=== PATIENT | female | born 1960 | race Caucasian/White ===

== ENCOUNTER 2018-03-17 10:29 | Inpatient (IN) | payer BC ==
[2018-03-12 13:58] VITALS: BMI 28.0
--- NOTE | 2018-03-12 14:31 | PAT Medication Instructions ---
Service Date March 12, 2018. Current Home Medication List Ascorbic Acid (Vitamin C), 250 MG PO QAM Cod Liver Oil (Cod Liver Oil), 1 TAB PO QAM Diclofenac Sodium (Topical) (Voltaren 1% Top Gel), 1 DOSE TOP PRN Lorazepam (Ativan), 0.5 MG PO HS PRN for RN Multivitamin (Multivitamin), 1 TAB PO PRN Nutritional Supplements (Estroven), 1 TAB PO QAM Tramadol (Ultram), 50-100 MG PO Q4H PRN for PRN Medication Instructions For Your Scheduled Surgery - Hold the following medications starting tomorrow: Cod Liver Oil (Cod Liver Oil), 1 TAB PO QAM - Hold the following medications 24 hours prior to surgery: Diclofenac Sodium (Topical) (Voltaren 1% Top Gel), 1 DOSE TOP PRN - Hold the following medications the morning of surgery: Ascorbic Acid (Vitamin C), 250 MG PO QAM Multivitamin (Multivitamin), 1 TAB PO PRN Nutritional Supplements (Estroven), 1 TAB PO QAM - Take the following medications the morning of surgery with a sip of water: Lorazepam (Ativan), 0.5 MG PO HS PRN for RN (if needed) Tramadol (Ultram), 50-100 MG PO Q4H PRN for PRN (if needed, can be taken up to four hours before surgery) - Take the following medications as scheduled the night before surgery: Lorazepam (Ativan), 0.5 MG PO HS PRN for RN (if needed) Tramadol (Ultram), 50-100 MG PO Q4H PRN for PRN (if needed) If you have any questions please call us at [phone] or [phone] or [phone]
--- NOTE | 2018-03-12 15:00 | DIAGNOSTIC IMAGING REPORT ---
CHEST 2 VIEWS ROUTINE CLINICAL HISTORY: PAT preoperative evaluation COMPARISON STUDY: No previous studies for comparison. FINDINGS: The bones soft tissues and hemidiaphragms are normal. The cardiomediastinal silhouette is normal. The lungs are clear. The pulmonary vasculature is normal. IMPRESSION: Negative chest. The above report was generated using voice recognition software. It may contain grammatical, syntax or spelling errors. Electronically signed by: Gerardo Corbett M.D. 03/12/2018 2:58 PM Dictated Date/Time: 03/12/2018 2:58 PM
[2018-03-12 15:35] LABS: BASO % 0.2 %; BASO ABS # 0.01 K/uL (0-0.2); EOS % 2.5 %; EOS ABS # 0.12 K/uL (0-0.5); HEMOGLOBIN 14.6 g/dL (12.0-16.0); IG# 0.01 K/uL (0.00-0.02); LYMPH % 32.8 %; LYMPH ABS # 1.57 K/uL (1.2-3.4); MEAN CELL VOLUME 87.7 fL (80-100); MEAN CORPUSCULAR HGB CONC 36.5 g/dl (32-36); MEAN PLATELET VOLUME 9.2 fL (7.4-10.4); MONO ABS # 0.43 K/uL (0.11-0.59); NEUT % 55.3 %; NEUT ABS # 2.65 K/uL (1.4-6.5); PLATELET COUNT 300 K/uL (130-400); RED CELL DISTRIBUTION WIDTH SD 38.5 fL (36.4-46.3); WHITE BLOOD COUNT 4.79 K/uL (4.8-10.8)
[2018-03-12 15:43] LABS: PTT PATIENT 26.1 SECONDS (21.0-31.0)
[2018-03-12 15:56] LABS: CALCIUM 8.8 mg/dl (8.5-10.1); CREATININE 0.79 mg/dl (0.60-1.20); POTASSIUM 3.2 mmol/L (3.5-5.1)
--- NOTE | 2018-03-13 16:55 | HISTORY & PHYSICAL EXAMINATION ---
DATE OF ADMISSION: 03/17/2018 CHIEF COMPLAINT: Bilateral knee pain, right side greater than left. 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 She has got a 6-month history of markedly increasing bilateral knee pain and discomfort, unresponsive to conservative treatment. She has had baseline pain for quite some time but just gotten more unbearable over the past 6 months. She has tried various medicines but developed GI irritation from NSAIDs and cannot take them anymore. She has been using tramadol which helps at night time. She has had steroid shots and gel shots which have not helped much. She now likes to proceed with knee replacement. She has actually had to use a wheelchair intermittently on a vacation trip to [place]. She has also tried topical Voltaren gel which has provided minimal relief. PAST MEDICAL HISTORY: Significant for: 1. Hypertension. 2. Anxiety/depression. 3. Arthritis. PAST SURGICAL HISTORY: x3. ALLERGIES: PENICILLIN, REACTIONS UNKNOWN. CURRENT MEDICINES: Include: 1. Ativan for anxiety. 2. Tramadol for pain. 3. Topical Voltaren gel. 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 She is . Rare alcohol intake. Does not smoke. FAMILY HISTORY: Noncontributory. REVIEW OF SYSTEMS: Negative for diabetes, neurologic problems, vascular problems, bleeding disorders. Denies any chest pain or shortness of breath. No history of DVT or PE. PHYSICAL EXAMINATION: GENERAL: Reveals a healthy, pleasant middle-aged female. Looks to be in good health. HEENT: Benign. NECK: Supple. No lymphadenopathy. LUNGS: Clear to auscultation. HEART: Has a regular rate and rhythm. ABDOMEN: Soft, nontender, nondistended. EXTREMITIES: Grossly neurovascularly intact except as follows: Examination of the right knee reveals patient walks with varus alignment to her knee. She does limp on the right side. She gets some healed scabs from some insect bites. A small knee effusion. Range of motion 0-120. No instability. Examination of the left knee reveals varus alignment. Range of motion 0-125. Trace knee effusion. No pain with hip motion. X-RAYS: X-rays of both knees reveal advanced bilateral knee DJD. She has got complete loss of medial joint space on both sides. The right side is a bit worse than the left. She has some lateral compartment disease as well. ASSESSMENT: Gynyn-acvjg-gsng-old white female with bilateral knee degenerative joint disease, right side worse than the left, unresponsive to conservative treatment. She would like to have her right knee replaced. PLAN: We will take her to the operating room and proceed with right knee replacement. The risks and benefits of this procedure were explained to the patient including but not limited to DVT, PE, , infection, neurological injury, vascular injury, bleeding problem, pain, limited range of motion, stiffness, failure to relieve symptoms, incomplete relief of symptoms, etc. Patient understands and desires to proceed. Informed consent was obtained. I did make her aware that at her young age, she may need her knees revised at some point in the future. She is aware of this and wants to proceed.
[2018-03-17] VITALS (8 sets, daily range): BP systolic 104–125; BP diastolic 68–79; PULSE 70–87; TEMP 36.5–37.3; O2SAT 92–99; Ht 162.6 cm; Wt 74.1 kg
[~2018-03-17] VITALS: Ht 162.6 cm; Wt 74.1 kg
[~2018-03-17 10:29] MED LIST: ACETAMINOPHEN 500 MG TAB PO SCH; ASCO250T4 PO; BUPIVACAINE LIPOSOME 266 MG, BUPIVACAINE/EPINEPHRINE INJ 50 ML, SODIUM CHLORIDE 0.9% PF... INFIL SCH; CEFAZOLIN 2000MG IV PUSH 15 ML IV SCH; CODCAP4 PO; DICL1GEL12 TOP; FAMOTIDINE 20 MG TAB PO SCH; GABAPENTIN 600 MG PO SCH; LACTATED RINGER'S 1000ML 1,000 ML IV SCH; LACTATED RINGER'S 1000ML IV SCH; LORA-741 PO; METOCLOPRAMIDE HCL 10 MG TAB PO SCH; MULT-506 PO; NUTRTAB40 PO; SCOPOLAMINE 1.5 MG TDSY TD SCH; TRAM-10 PO; TRANEXAMIC ACID INJ 1,000 MG x 1 Bag Intra-Op IV SCH
[2018-03-17] MEDS ORDERED: SODIUM CHLORIDE 0.9% INJ 10 ML VIAL ONE (10:56)
[2018-03-17] MEDS ORDERED: DEXAMETHASONE SOD INJ 4 MG/ML VIAL ONE (10:56)
[2018-03-17] MEDS ORDERED: BUPIVACAINE 0.5 % 5 MG/1 ML PF 10ML VIAL ONE ×2 (10:56→12:33)
[2018-03-17] MEDS ORDERED: EpINEphrine INJ 1MG/ML AMP 1 MG/ML AMP ONE (10:56)
[2018-03-17] MEDS ORDERED: MIDAZOLAM HCL 1 MG/ML 2ML VIAL ONE (11:01)
[2018-03-17] MEDS ORDERED: FENTANYL CITRATE INJ 50 MCG/1 ML 2 ML VIAL ONE (11:01)
--- NOTE | 2018-03-17 12:24 | History & Physical Bridge Note ---
H&P Re-Evaluation Bridge Note: I have examined the patient, reviewed the History & Physical and in the interval since the performance of the History & Physical I have noted the following changes of clinical significance: No changes noted
[2018-03-17] MEDS ORDERED: BUPIVACAINE 0.25% 30 ML VIAL ONE (12:31)
[2018-03-17] MEDS ORDERED: BUPIVACAINE LIPOSOME 1/3% 266 MG/20 ML VIAL ONE (12:31)
[2018-03-17] MEDS ORDERED: BACITRACIN 50000 UNIT VIAL ONE (12:31)
[2018-03-17] MEDS ORDERED: SODIUM CHLORIDE 0.9% PF 50 ML VIAL ONE (12:31)
--- NOTE | 2018-03-17 14:29 | [facility] Post Operative Brief Note ---
Immediate Operative Summary Operative Date March 17, 2018. Pre-Operative Diagnosis Right Knee Degenerative Joint Disease Post-Operative Diagnosis Same as Preop Procedure(s) Performed Right Total Knee Arthroplasty Surgeon Dr. Aiken Claim Examiner Surgeon(s) Mukesh Albert PA-C Estimated Blood Loss 50 ml Findings Consistent with Post-Op Diagnosis Fluids (cc crystalloids) 800 cc Specimens A. Right Knee Bone and Tissue Drains None Anesthesia Type MAC Spinal Regional Complication(s) none Disposition Accompanied Pt To Recover: no
[2018-03-17] MEDS ORDERED: ZOLPIDEM TARTRATE 5 MG TAB PO PRN (14:30)
[2018-03-17] MEDS ORDERED: TRAMADOL HCL 50 MG TAB PO PRN (14:30)
[2018-03-17] MEDS ORDERED: ALUMINUM/MAGNESIUM/SIMETH (MAALOX MAX) 30 ML UDC PO PRN (14:30)
[2018-03-17] MEDS ORDERED: METOCLOPRAMIDE HCL INJ 5 MG/ML 2 ML VIAL IV PRN (14:30)
[2018-03-17] MEDS ORDERED: BISACODYL 10 MG SUPP PR PRN (14:30)
[2018-03-17] MEDS ORDERED: FENTANYL CITRATE INJ 50 MCG/1 ML 2 ML VIAL IV PRN (14:30)
[2018-03-17] MEDS ORDERED: SILVER SULFADIAZINE 1% CR 50 GM JAR EXT PRN (14:30)
[2018-03-17] MEDS ORDERED: MULTIVITAMIN TAB PO SCH (14:30)
[2018-03-17] MEDS ORDERED: MAGNESIUM HYDROXIDE SUSP 30 ML UDC PO PRN (14:30)
[2018-03-17] MEDS ORDERED: ONDANSETRON INJ 2 MG/ML 2 ML VIAL IV PRN (14:30)
[2018-03-17] MEDS ORDERED: EpHEDrine SULFATE INJ 50 MG/ML AMP IV PRN (14:30)
[2018-03-17] MEDS ORDERED: DiphenhydrAMINE HCL 50 MG/ML VIAL IV PRN (14:30)
[2018-03-17] MEDS ORDERED: ATROPINE SULFATE 0.1 MG/ML 5ML SYR IV PRN (14:30)
[2018-03-17] MEDS ORDERED: MoRPHine SULFATE 2 MG/ML CARP IV PRN (14:30)
[2018-03-17] MEDS ORDERED: LORAZEPAM 0.5 MG TAB PO PRN (14:30)
--- NOTE | 2018-03-17 14:56 | DIAGNOSTIC IMAGING REPORT ---
R KNEE 1 OR 2 VIEWS ROUTINE CLINICAL HISTORY: AP/LATERAL IN PACU RIGHT KNEE COMPARISON: None. DISCUSSION: Anatomic alignment posttotal right knee arthroplasty. Good contact between prosthetic and underlying bone. Surgical drains are in position. Expected soft tissue postoperative change. IMPRESSION: Anatomic alignment posttotal right knee arthroplasty. The above report was generated using voice recognition software. It may contain grammatical, syntax or spelling errors. Electronically signed by: Gerardo Corbett M.D. 03/17/2018 2:55 PM Dictated Date/Time: 03/17/2018 2:54 PM
--- NOTE | 2018-03-17 15:09 | Anesthesiology Progress Note ---
Anesthesia Post Op Note Date & Time March 17, 2018 at 15:08 Vital Signs Pain Intensity: 0 Vital Signs Past 12 Hours Date Time Temp Pulse Resp B/P (MAP) Pulse Ox O2 Delivery O2 Flow Rate FiO2 03/17/18 15:00 69 16 122/75 96 Nasal Cannula 2 03/17/18 14:50 69 16 124/76 96 Nasal Cannula 2 03/17/18 14:40 73 14 131/76 96 Nasal Cannula 2 03/17/18 14:32 37.8 75 19 132/82 94 Oxymask 10 03/17/18 10:59 36.9 84 18 117/79 95 Room Air Notes Mental Status: alert / awake / arousable, participated in evaluation Pt Amnestic to Procedure: Yes Nausea / Vomiting: adequately controlled Pain: adequately controlled Airway Patency, RR, SpO2: stable & adequate BP & HR: stable & adequate Hydration State: stable & adequate Neuraxial Anesthesia: was administered, sensory block is resolving Anesthetic Complications: no major complications apparent
[2018-03-17] MEDS: CHECK SCOPOLAMINE PATCH PLACEMENT SCH (16:00)
[2018-03-17] MEDS: D5W AND 1/2NSS + 20MEQ KCL 1,000 ML IV SCH (17:00)
[2018-03-17] MEDS: ACETAMINOPHEN 500 MG TAB PO SCH ×2 (17:04→20:42)
[2018-03-17] MEDS: FERROUS GLUCONATE 324 MG TAB PO SCH (17:58)
[2018-03-17] MEDS: KETOROLAC TROMETHAMINE 30 MG/ML VIAL IV. SCH (17:58)
[2018-03-17] MEDS: CEFAZOLIN IV 1,000 MG in SYRINGE 0 ML IV SCH (20:37)
[2018-03-17] MEDS: DOCUSATE SODIUM 100 MG CAP PO SCH (20:39)
[2018-03-17] MEDS: SENNA 8.6 MG TAB PO SCH (20:40)
[2018-03-17] MEDS: ASCORBIC ACID 500 MG TAB PO SCH (20:40)
[2018-03-17] MEDS: ASPIRIN 81 MG ECTAB PO SCH (20:41)
[2018-03-17] MEDS: TAPENTADOL ER 50 MG TABCR PO SCH (20:44)
[2018-03-18] MEDS: CHECK SCOPOLAMINE PATCH PLACEMENT SCH ×3 (00:24→15:47)
[2018-03-18] MEDS: KETOROLAC TROMETHAMINE 30 MG/ML VIAL IV. SCH ×5 (00:24→23:26)
[2018-03-18] MEDS: ONDANSETRON INJ 2 MG/ML 2 ML VIAL IV PRN ×2 (00:39→13:57)
[2018-03-18] MEDS: D5W AND 1/2NSS + 20MEQ KCL 1,000 ML IV SCH ×2 (02:28→13:00)
[2018-03-18 03:22] VITALS: BP 105/67; PULSE 60; TEMP 36.8; O2SAT 93
[2018-03-18] MEDS: CEFAZOLIN IV 1,000 MG in SYRINGE 0 ML IV SCH (03:37)
[2018-03-18] MEDS: OXYCODONE HCL IR 5 MG TAB (IMMEDIATE RELEASE) PO PRN ×2 (03:42→23:26)
[2018-03-18] MEDS: ACETAMINOPHEN 500 MG TAB PO SCH ×3 (05:54→21:26)
[2018-03-18 07:05] LABS: HEMATOCRIT 38.8 % (37-47); HEMOGLOBIN 13.6 g/dL (12.0-16.0); MEAN CELL VOLUME 86.8 fL (80-100); MEAN CORPUSCULAR HEMOGLOBIN 30.4 pg (25-34); MEAN CORPUSCULAR HGB CONC 35.1 g/dl (32-36); PLATELET COUNT 183 K/uL (130-400); RED CELL DISTRIBUTION WIDTH SD 38.6 fL (36.4-46.3); WHITE BLOOD COUNT 5.86 K/uL (4.8-10.8)
[2018-03-18 07:20] VITALS: BP 105/67; PULSE 64; TEMP 36.6; O2SAT 95
[2018-03-18 07:38] LABS: CALCIUM 8.1 mg/dl (8.5-10.1); CREATININE 0.76 mg/dl (0.60-1.20); POTASSIUM 3.6 mmol/L (3.5-5.1)
--- NOTE | 2018-03-18 07:47 | OPERATIVE REPORT ---
DATE OF OPERATION: 03/17/2018 SURGEON: Saad Aiken MD UNDERCOAT SPRAYER: DAVID Santana PREOPERATIVE DIAGNOSIS: Right knee degenerative joint disease. POSTOPERATIVE DIAGNOSIS: Same. PROCEDURE PERFORMED: Right cemented posterior stabilized total knee arthroplasty. COMPLICATIONS: None. ESTIMATED BLOOD LOSS: 50 mL. FLUID REPLACEMENT: 800 mL crystalloid fluid replacement. TOURNIQUET TIME: 53 minutes. ANESTHESIA: Spinal with adductor canal block. DRAINS: None. SPECIMENS: Right knee sent for pathology. OPERATIVE INDICATIONS: The patient is a 57-year-old female who has had a several-year history of increasing right knee pain, discomfort, unresponsive to conservative treatment. X-rays show advanced medial compartment arthritis. She failed conservative care and elected to proceed with surgical management. OPERATIVE FINDINGS: Operative findings revealed advanced right knee DJD with pretty extensive grade 4 change of the medial femoral condyle and medial tibial plateau with some tibial femoral subluxation. Most of the wear was on the far medial side of the medial femoral condyle. The lateral compartment was well preserved. She had some grade 3 changes of the patellofemoral compartment. She had a large joint effusion. OPERATIVE IMPLANTS: Operative implants consisted of: 1. A Biomet Vanguard size 60 right posterior stabilized femoral component. 2. Biomet size 59 tibial tray. 3. A 10-mm posterior stabilized polyethylene insert. 4. A 28 x 8 all poly patella. OPERATIVE PROCEDURE: Patient taken to the operating room, identified, and placed on the operating table in supine position. All contact areas were appropriately padded. IV antibiotics were provided by anesthesia team. A spinal anesthetic and adductor canal block had been provided in the holding area. Mckeon catheter was placed in sterile fashion. A right thigh tourniquet was then placed and the right lower extremity was then prepped and draped in the usual sterile fashion. The right leg was elevated and exsanguinated with Esmarch and tourniquet was placed at 300 mmHg. An anterior approach to the right knee was then performed through a longitudinal incision centered over the patella. Sharp dissection was carried through subcutaneous tissues down to the level of the extensor mechanism. A medial parapatellar arthrotomy incision was made. Some subperiosteal dissection was carried out medially. The fat pad resected from beneath the patellar tendon. The lateral patellofemoral ligament was released. Patella was everted and knee was flexed. The osteophytes were taken off the distal femur. The ACL and PCL were then released from the distal femur and the tibia subluxated anteriorly. The external tibial alignment jig was then placed in the anterior face of the tibia and adjusted 14 mm medially. Proximal tibial cut was made to remove about 2-3 mm off the medial side as she did not have a lot of bony wear. Tibia was then sized to a size 59. I really wanted to make it a little bit bigger if possible, but it would have resulted in internal rotation of the tibial tray. We elected to use to the 59. Attention was then drawn to the femur. The distal femur was entered with a sharp drill bit. Intramedullary canal was suctioned. A right 5-degree valgus cutting guide was placed. Distal femoral cutting block was pinned in place. Distal femoral cut was made to take an additional 3 mm of bone off the distal femur. The femur was then sized to a size 60. We did downsize this slightly. The AP cutting block was placed parallel to the epicondylar axis, which was 3 degrees of external rotation. The anterior cut, anterior chamfer cut, posterior cut, posterior chamfer cuts were made. The box guide was placed and adjusted slightly lateral and the box cut was made. The remnants of the medial and lateral menisci were excised. The osteophytes were taken off the posterior aspect of the femur. A trial femoral component was placed. Tibial tray was pinned in maximum external rotation and drill and stem punch were used to create a defect in the proximal tibia for the tibial tray. The knee was then trialed and the 10 mm insert fit most appropriately. Attention was drawn to the patella. The patella was cleaned of all soft tissues. Patella thickness measured 19 mm in thickness and was cut down to 12. It was sized to a size 28. Lug holes were drilled for a 28 patella. The lateral osteophyte was removed. The trial button was placed. Knee was taken through range of motion and patella tracked nicely with no thumbs test. Attention was then drawn toward placement of permanent components. All trial components were removed. A bone plug was placed in the distal femur to limit blood loss. A double batch of Palacos G cement was mixed. A right size 60 posterior stabilized femoral component, size 59 tibial tray, 10 mm posterior stabilized polyethylene insert, and a 28 x 8 all poly patella were then cemented in place. Knee was brought out into full extension until the cement hardened. A final cement check was then performed. The pericapsular tissues were injected with a total of 100 mL of a combination of 20 mL of Exparel, 30 mL of normal saline, 50 mL of 0.25% Marcaine with epinephrine. The patient did receive 1 gram of tranexamic acid. The tourniquet was then let down for a final tourniquet time of 53 minutes. Hemostasis was assured with use of electrocautery. The wound was once again irrigated. The extensor mechanism was then closed with a combination of #1 PDS suture and #1 Vicryl suture in a [id number] fashion. The extensor mechanism was checked and found to be intact. The subcutaneous tissue then closed with #2 Dexon suture in a buried interrupted fashion. Skin was closed skin sherri. Leg was then cleaned and dried and a sterile dressing with Xeroform, 4 x 4, sterile cast padding and Woody bandage were applied. The patient was then transferred to the recovery room in stable condition. The patient tolerated the procedure with no complications. All needle and sponge counts were correct at the end of the operation. I attest to the content of the Intraoperative Record and any orders documented therein. Any exceptions are noted below. CEDRICK
[2018-03-18] MEDS: PANTOprazole SOD 40 MG TAB PO SCH (08:16)
[2018-03-18] MEDS: DOCUSATE SODIUM 100 MG CAP PO SCH ×2 (08:16→20:43)
[2018-03-18] MEDS: FERROUS GLUCONATE 324 MG TAB PO SCH ×3 (08:16→17:45)
[2018-03-18] MEDS: MULTIVITAMIN TAB PO SCH (08:17)
[2018-03-18] MEDS: ASPIRIN 81 MG ECTAB PO SCH ×2 (08:17→20:44)
[2018-03-18] MEDS: ASCORBIC ACID 500 MG TAB PO SCH ×2 (08:17→21:31)
[2018-03-18] MEDS: TAPENTADOL ER 50 MG TABCR PO SCH ×2 (08:21→20:47)
[2018-03-18] MEDS ORDERED: NUTRITIONAL SUPPLEMENTS PO SCH (09:00)
[2018-03-18] MEDS ORDERED: RXC5 PO (09:42)
[2018-03-18] MEDS ORDERED: ASPI-320 PO (09:42)
[2018-03-18] MEDS ORDERED: ACET-24 PO (09:42)
--- NOTE | 2018-03-18 10:11 | PROGRESS NOTE ---
DATE: 03/18/2018 SUBJECTIVE: This is a 57-year-old white female, postop day 1 from a right knee replacement. She is doing pretty well. Pain is controlled. Just feels tired. No chest pain or shortness of breath. Not feeling dizzy or lightheaded. OBJECTIVE: VITAL SIGNS: Temperature 36.6. Vital signs stable. PHYSICAL EXAMINATION: GENERAL: Physical examination shows a pleasant, middle-aged female. I had to wake her this morning as was pretty tired. EXTREMITIES: Examination of the right leg reveals the leg to be well-aligned. She can dorsiflex and plantarflex her foot appropriately. She is neurologically intact. LABORATORIES: Hemoglobin 13.6. Hematocrit 38.8. Electrolytes are stable. ASSESSMENT: This is a 57-year-old white female, postop day 1 from a right knee replacement, doing quite well. Pain is reasonably well-controlled. She is neurologically intact. PLAN: 1. DVT prophylaxis including thigh-high TEDs, SCDs, and aspirin twice a day. 2. PT/OT. Weightbear as tolerated. Right total knee protocol. 3. Pain control, doing well with current pain regimen. 4. Disposition: She is planning to be discharged to home with some home health once adequately recovered.
[2018-03-18 15:30] VITALS: O2SAT 95
[2018-03-18 15:36] VITALS: BP 122/76; PULSE 60; TEMP 37; O2SAT 97
[2018-03-18] MEDS: SENNA 8.6 MG TAB PO SCH (20:47)
--- NOTE | 2018-03-18 21:29 | Discharge Instructions ---
Discharge Instructions Date of Service March 18, 2018. Admission Reason for Admission: Right Knee Degenerative Joint Disease Discharge Discharge Diagnosis / Problem: Right Knee Replacement Discharge Goals Goal(s): Decrease discomfort, Improve function, Increase independence, Improve disease control, Therapeutic intervention Activity Recommendations Activity Limitations: per Instructions/Follow-up section Weightbearing Status: Right weightbearing . Instructions / Follow-Up Instructions / Follow-Up ACTIVITY RECOMMENDATIONS: Physical Therapy: * You will go to physical therapy three times each week for four to six weeks after your surgery in order to regain your knee range of motion and to retrain your knee to work properly. * It is just as important to make sure you are getting your knee perfectly straight as it is to regain your knee bend. * Taking a pain pill an hour before therapy can help you have a more productive and comfortable therapy session. Home Exercise: * You were shown a series of exercises (heel props, heel slides, etc.) in the hospital. Do these exercises three to four times each day including the exercises you were shown in physical therapy. Walking: * Get up and walk several times each day. For the first four weeks, try not to stand or walk for more than one hour at a time. If you do stand or walk for more than one hour, you will not hurt anything, but your knee and leg will likely swell. * As you feel comfortable, you may change from the walker or crutches to a cane and then to independent walking. MEDICATIONS: New Medicine: * You will likely be taking one or more of these medications: 1. Oxycodone - A quick and shorter-acting pain medication. Take one to two tablets every four to six hours to lessen your pain. 2. Aspirin - Thins your blood to lessen the chance of forming a blood clot. * The most common side effects of pain medicine and iron are nausea and constipation. If nausea or constipation is too much of a problem or if you have any questions about your new medicines or doses, call [facility] at . We will try to help you manage these issues. VERY IMPORTANT TO READ AND REVIEW" Pain: * The immediate post-operative period after knee replacement surgery is often quite painful. * You are given a prescription for pain medicine. You should take it, as directed, when you need it, especially before physical therapy and before going to bed. Pain that interferes with sleep is very common and can last several months. * You will likely need pain medicine for the first four to six weeks. It will not stop all of the pain. The pain will lessen and as you feel better, you may change to milder pain medicine such as Tylenol. * The most common side effects of pain medicine are nausea and constipation, so don't take more than you need. SPECIAL CARE INSTRUCTIONS: TEDs/Elastic Stockings: * The white elastic stockings help limit swelling and prevent blood clots from forming in your legs. The more you wear them, the more they work. * Wear them for six weeks after knee replacement surgery and four weeks after partial knee replacement. Prevention of Infection: * Take antibiotics one hour before any dental cleaning, dental work, urological procedure, gastrointestinal procedure or any invasive surgery in order to prevent your new joint from getting infected. * You may get the antibiotics from the doctor performing the procedure or you may call our office at before and we will call in a prescription to the pharmacy of your choice. Things to Watch For: * Drainage from the incision site that occurs more than one week after your surgery. * Severely increased knee/leg pain or swelling. * Increased redness at the incision site. * Fever above 102 degrees Fahrenheit. * Unusual chest pain or shortness of breath. * Unusual pain or burning with urination. Call [facility] at with any of the above problems or if you have any questions about your medicines or recovery. FOLLOW UP VISIT: Make an appointment to see your doctor for approximately two weeks after surgery for a progress check and staple removal by calling the office at . Current Hospital Diet Patient's current hospital diet: Regular Diet Discharge Diet Recommended Diet: Regular Diet Procedures Procedures Performed: Right Total Knee Arthroplasty Pending Studies Studies pending at discharge: no Medical Emergencies . Who to Call and When: Medical Emergencies: If at any time you feel your situation is an emergency, please call [phone] immediately. . Non-Emergent Contact Non-Emergency issues call your: Surgeon . "Provider Documentation" section prepared by Saad Aiken. .
[2018-03-18 23:04] VITALS: BP 134/91; PULSE 69; TEMP 36.8; O2SAT 95
[2018-03-19] MEDS: CHECK SCOPOLAMINE PATCH PLACEMENT SCH ×2 (00:15→07:41)
[2018-03-19] MEDS: KETOROLAC TROMETHAMINE 30 MG/ML VIAL IV. SCH (05:22)
[2018-03-19] MEDS: ACETAMINOPHEN 500 MG TAB PO SCH (05:22)
[2018-03-19] MEDS: OXYCODONE HCL IR 5 MG TAB (IMMEDIATE RELEASE) PO PRN (07:45)
--- NOTE | 2018-03-19 08:02 | PROGRESS NOTE ---
DATE: 03/19/2018 SUBJECTIVE: A 57-year-old female postop day 2 from right knee replacement. She is doing pretty well. Pretty painful after therapy yesterday. No new complaints otherwise. No chest pain or shortness of breath. Not feeling dizzy or lightheaded. OBJECTIVE: VITAL SIGNS: Temperature 36.8. Vital signs stable. PHYSICAL EXAMINATION: GENERAL: Reveals a pleasant, middle-aged female. She is lying in bed, looks pretty comfortable. EXTREMITIES: Examination of the right leg reveals the dressing to be clean, dry and intact. Leg is well aligned. She can dorsiflex and plantarflex her foot appropriately. She is neurologically intact. ASSESSMENT: A 57-year-old white female postop day 2 from right knee replacement, doing reasonably well. Pain is reasonably well controlled. PLAN: 1. DVT prophylaxis including thigh-high TEDs, SCDs, and aspirin twice a day. 2. PT/OT. Weight bear as tolerated. Right total knee protocol. 3. Pain control, doing pretty well with current pain regimen. 4. Disposition: Plan to discharge to home later today after therapy.
[2018-03-19 08:10] VITALS: BP 109/73; PULSE 62; TEMP 36.5; O2SAT 94
[2018-03-19] MEDS: FERROUS GLUCONATE 324 MG TAB PO SCH (08:30)
[2018-03-19] MEDS: PANTOprazole SOD 40 MG TAB PO SCH (08:32)
[2018-03-19] MEDS: MULTIVITAMIN TAB PO SCH (08:32)
[2018-03-19] MEDS: ASCORBIC ACID 500 MG TAB PO SCH (08:32)
[2018-03-19] MEDS: TAPENTADOL ER 50 MG TABCR PO SCH (08:36)
[2018-03-19 10:00] VITALS: BP 91/53; PULSE 63
[2018-03-19] MEDS: DOCUSATE SODIUM 100 MG CAP PO SCH (11:16)
[2018-03-19] MEDS: ASPIRIN 81 MG ECTAB PO SCH (11:16)
== END 2018-03-19 13:26 | disposition home or self-care (01) | DRG 470 ==
LOC: C.ACU 10:29 → C.3E 11:30 → ENRESERV 15:42 → C.3E 03-18 11:26
PROVIDERS: ADMIT Orthopaedic Surgery Sports Medicine; ATTEND Orthopaedic Surgery Sports Medicine
PROC: 0SRC0J9 Replacement of Right Knee Joint with Synthetic Substitute, Cemented, Open Approach (ICD-10-PCS; principal; 2018-03-17 13:00)
DX: M17.0 Bilateral primary osteoarthritis of knee (principal); I10 Essential (primary) hypertension; F41.9 Anxiety disorder, unspecified; Z79.899 Other long term (current) drug therapy; Z79.891 Long term (current) use of opiate analgesic

== ENCOUNTER 2024-04-21 09:53 | Observation (INO) ==
--- NOTE | 2024-03-25 10:37 | PAT Medication Instructions ---
Medication Instructions Date of Service March 25, 2024 Home Medications diltiazem HCl 180 mg tablet,extended release 24 hr 180 mg PO QPM losartan 100 mg tablet 100 mg PO QPM Women's One Daily 1 tab PO QAM DO NOT take the morning of surgery Women's One Daily 1 tab PO QAM Take evening before surgery diltiazem HCl 180 mg tablet,extended release 24 hr 180 mg PO QPM losartan 100 mg tablet 100 mg PO QPM Other Notes NOTHING TO EAT OR DRINK AFTER MIDNIGHT If you have any questions please call us at [phone] or [phone] or [phone] or [phone]
--- NOTE | 2024-04-02 11:34 | Anesthesiology Consultation ---
Date of Service April 02, 2024 Assessment & Plan (1) Encounter for pre-operative examination: - spinal block more 35 years ago: significant headache after spinal block for c- section per patient. - awareness during right knee replacement. - surgeon's office made aware of upcoming ophthalmic procedure 04/09/24. - Outpatient joint assessment: Patient is currently scheduled for inpatient pathway. If re-evaluated and patient/surgeon requests outpatient pathway, patient is acceptable candidate for outpatient joint program from anesthesia standpoint pending surgeon's office assessment of pt motivation/support/completion of same day joint program preop requirements. Chart Review Chart Review: Acceptable Risk for Surgery and Patient seen in Pre Admission Testing Teaching & Discussion Pre-Anesthesia Teaching/Discussion Notes: Instructed NPO after midnight before surgery, except medications with 15 cc of water. Medication instructions provided according to the PAT guidelines. History Surgery Operation Date: 04/13/24 12:30 Proposed Procedures p Left Total Knee Arthroplasty - Saad Aiken MD Height/Weight Height: 5 ft 4 in Weight: 77.7 kg Allergies Allergy/AdvReac Type Severity Reaction Status Date / Time cat dander Allergy Unknown ITCHY Verified 03/23/24 07:35 EYES, STUFFY ,CONGESTION Penicillins Allergy Unknown UNKNOWN Verified 03/23/24 07:35 A CHILD Medications Home Medications Medication Instructions Recorded Confirmed Last Taken diltiazem HCl 180 mg 180 mg PO QPM 03/23/24 03/23/24 Unknown tablet,extended release 24 hr losartan 100 mg tablet 100 mg PO QPM 03/23/24 03/23/24 Unknown multivit-iron 18 mg-folic acid 400 1 tab PO QAM 03/23/24 03/23/24 Unknown mcg-calcium 500 mg-minerals tablet (Women's One Daily) 3-in-1 Commode #1 ea 04/02/24 04/02/24 Unknown Past Medical History Medical History Cervical spondylosis History of anesthesia reaction (2017) reports waking up during right knee replacement surgery History of COVID-19 (2019) not hospitalized, mild Hx of colonic polyp Hypertension controlled, stable per pt Inflammation of eye, left (03/2024) having lens cleaned up in concession cashier office on 04/09/24 with laser- no anesthesia Left knee DJD Patient denies h/o stroke, seizures, heart attack, heart failure, DM, blood clots/DVTs or blood transfusions. Exercise / Class Metabolic Activity II 4-5 Yardwork/Stairs/Walk up hill (denies chest discomfort or shortness of breath with one flight of stairs) Past Surgical History Surgical History History of carpal tunnel surgery of right wrist (2017) History of right knee joint replacement (2017) Hx laparoscopic cholecystectomy (2014) Hx of bilateral cataract extraction (2022) Hx of section x3 Hx of colonoscopy with polypectomy (02/2024) Hx of hysterectomy (2003) Hx of wisdom tooth extraction (1982) Past Anesthesia History No Family Hx of Anesthesia Complications and Other (see above.) History of PONV No Hx of PONV and No Hx of Motion Sickness Social History Smoking Status: Never smoker Do You Dip or Chew Tobacco: No Hx Alcohol Use: Yes Alcohol type: wine alcohol intake frequency: holidays/special occasions only Hx Substance Use: No substance use type: does not use Review of Systems Patient denies chest pain, shortness of breath, dyspnea on exertion, snoring, witnessed apneas, reflux, fever, chills, cough, wheezing, or palpitations. Physical Exam Vital Signs Vitals BP 146/93 P 67 TEMP 97.8 SP02 96% on RA RESP 17 Physical Patient resting comfortably in chair in no acute distress, alert and oriented, responding appropriately throughout visit Full cervical extension range of motion without pain TMD 3.5 finger breadths Mallampati Score 2 Dentition: intact, denies chipped or loose teeth, caps/crowns, implants or bridges Lungs: normal respiratory effort. Good air movement, clear throughout to auscultation, no adventitious breath sounds Cardiac: regular rate and rhythm, no murmurs noted Carotid arteries: negative bruit bilat Lab Results Anesthesia Preop Results Results Anesthesia Widget: WBC 6.23 K/ul (4.8-10.8) 04/02/24 Hgb 14.5 g/dl (12.0-16.0) 04/02/24 Hct 41.3 % (37.0-47.0) 04/02/24 Plt 290 K/uL (130-400) 04/02/24 Na 141 mmol/L (136-145) 04/02/24 K 3.9 mmol/L (3.5-5.1) 04/02/24 Cl 105 mmol/L (98-107) 04/02/24 CO2 29 mmol/L (21-32) 04/02/24 BUN 13 mg/dl (6-23) 04/02/24 Creat 0.65 mg/dl (0.6-1.2) 04/02/24 Glucose Level 90 mg/dl (70-99(Fasting)) 04/02/24 PT 11.7 Seconds (9.0-12.0) 04/02/24 PTT 27 Seconds (21-31) 04/02/24 INR 1.1 (0.9-1.1) 04/02/24 Blood Type A Positive 04/02/24 Antibody Screen NEGATIVE 04/02/24 Testing Electrocardiogram Date: 04/02/24 NSR, rate [address] abnormality Chest X-Ray Date: 04/02/24 No active disease in the chest.
[~2024-04-21 09:53] MED LIST changes: -ACETAMINOPHEN 500 MG TAB PO SCH; -ASCO250T4 PO; -BUPIVACAINE LIPOSOME 266 MG, BUPIVACAINE/EPINEPHRINE INJ 50 ML, SODIUM CHLORIDE 0.9% PF... INFIL SCH; -CEFAZOLIN 2000MG IV PUSH 15 ML IV SCH; -CODCAP4 PO; -DICL1GEL12 TOP; -FAMOTIDINE 20 MG TAB PO SCH; -GABAPENTIN 600 MG PO SCH; -LACTATED RINGER'S 1000ML 1,000 ML IV SCH; -LACTATED RINGER'S 1000ML IV SCH; -LORA-741 PO; -METOCLOPRAMIDE HCL 10 MG TAB PO SCH; -MULT-506 PO; -NUTRTAB40 PO; +ROPIVACAINE 0.5% 5 MG/ML 30 ML VIAL ONE; -SCOPOLAMINE 1.5 MG TDSY TD SCH; -TRAM-10 PO; -TRANEXAMIC ACID INJ 1,000 MG x 1 Bag Intra-Op IV SCH; +ceFAZolin 2000MG 2,000 MG/15 ML SYR IV SCH
--- NOTE | 2024-04-21 10:36 | History & Physical Bridge Note ---
Date of Service April 21, 2024 History & Physical Bridge Note I have examined the patient, reviewed the History & Physical and in the interval since the performance of the History & Physical I have noted the following changes of clinical significance: no changes noted
[2024-04-21] MEDS: Scopolamine 1 MG TDSY TD SCH (11:09)
[2024-04-21] MEDS: METOCLOPRAMIDE HCL 10 MG TABLET PO SCH (11:10)
[2024-04-21] MEDS: CeleBREX 200 MG CAP PO SCH (11:10)
[2024-04-21] MEDS: ACETAMINOPHEN 500 MG TAB PO SCH ×2 (11:10→21:23)
[2024-04-21] MEDS: LR 500ML BOLUS, THEN 15ML/HR IV SCH (11:11)
[2024-04-21] MEDS: dexAMETHasone**PF** 10 MG/ML VIAL IV SCH (11:11)
[2024-04-21] MEDS: FAMOTIDINE 20 MG TAB PO SCH (11:11)
[2024-04-21] MEDS: LR 60ML/HR IV SCH (11:12)
[2024-04-21] MEDS ORDERED: CONTINUE MEDICATION SCH (11:15)
[2024-04-21] MEDS ORDERED: fentaNYL citrate PF 100 MCG/2 ML VIAL IV PRN (11:26)
[2024-04-21] MEDS ORDERED: ATROPINE SULFATE 0.1 MG/ML 10ML SYR IV PRN (11:26)
[2024-04-21] MEDS ORDERED: ePHEDrine sulfate 50 MG/ML AMP IV PRN (11:26)
[2024-04-21] MEDS ORDERED: ONDANSETRON INJ 2 MG/ML 2 ML VIAL IV PRN ×2 (11:26→15:55)
[2024-04-21] MEDS ORDERED: KETOROLAC 30 MG/ML VIAL IV PRN (11:26)
[2024-04-21] MEDS ORDERED: MIDAZOLAM HCL 1 MG/ML 2ML VIAL ONE (12:00)
[2024-04-21] MEDS: ceFAZolin 2000MG 2,000 MG/15 ML SYR IV SCH (12:28)
[2024-04-21] MEDS ORDERED: LIDOCAINE 2% 2 ML VIAL/AMP(20MG/ML) INFIL ONE (12:44)
[2024-04-21] MEDS ORDERED: PROPOFOL IV EMULSION 10 MG/ML 20 ML VIAL IV ONE (13:04)
[2024-04-21] MEDS: ceFAZolin 2,000 MG/15 ML IV PUSH IV ONE (13:18)
[2024-04-21] MEDS: ROPIV 0.5% 246mg, Ketorolac 30mg, EPINEPHrine 0.5mg in NSS INFIL SCH (13:19)
[2024-04-21] MEDS: ORTHO JOINT ANESTHETIC ONE (13:19)
[2024-04-21] MEDS ORDERED: ONDANSETRON INJ 2 MG/ML 2 ML VIAL ONE (13:21)
[2024-04-21] MEDS: TRANEXAMIC ACID 1,000 MG **IV Intra-op IV SCH (13:25)
[2024-04-21] MEDS: VANCOMYCIN HCL 1000MG/20ML VIAL ONE (13:39)
--- NOTE | 2024-04-21 14:15 | Operative Report ---
PG Post Operative Report Pre & Post Diagnosis Operation Date: 04/21/24 12:00 Pre-Op Diagnosis: Degenerative Joint Disease Left Knee Post-Op Diagnosis: Degenerative Joint Disease Left Knee I identified the patient and participated in the time-out.: Yes Procedure Operation Date: 04/21/24 12:00 Actual Procedures p Left Total Knee Arthroplasty(Left) - Saad Aiken MD Surgeon Saad Aiken MD Unit Aide Mukesh Albert PA-C Estimated Blood Loss 50 Findings Consistent with Post-Op Diagnosis Operative findings were advanced left knee DJD. She had extensive grade 4 [id number] disease of the anteromedial compartment. She had some spotty grade 4 changes the patellofemoral joint and less severe disease laterally. Moderate- sized joint effusion. Specimens Left knee sent for pathology. Anesthesia Type Spinal MAC Complications none Disposition Accompanied Patient To Recovery: No Indications Patient is 63-year-old female is had a long history of knee problems over the years. She been through extensive conservative treatments became less successful over time. She did have her right knee placed about 6 years ago and is done well with this. She continues to be limited by left knee pain discomfort and progressive arthritis. She elected to proceed with surgical treatment. Description of Procedure Operative implants consist of: 1 Biomet Vanguard size 60 left posterior stabilized femoral component. 2. Biomet size 63 tibial tray. 3. 12 mm posterior stabilized polyethylene insert. 4. 28 x 8 all poly patella. The patient was taken the op room, identified, placed on the operating table in the supine position. All contact areas were appropriately padded. A spinal anesthetic and adductor canal block had been provided in the holding area. Fole y catheter was placed in sterile fashion. Left thigh turn was then placed in the left lower extremities then prepped and draped in usual sterile fashion. The left leg was elevated exsanguinated with use of an Esmarch and a turn was placed at 3 mmHg. An anterior approach the left knee was then performed to longitudinal incision centered over the patella. Sharp dissection carried through subcutaneous tissue down the extensor mechanism. A medial parapatellar arthrotomy incision was made. Some subperiosteal dissection was carried out medially. The fat pad was resected from Neath patella tendon. The lateral patellofemoral ligament was released. Patella subluxated laterally and the knee was flexed. The osteophytes taken off distal femur. The ACL PCL were then released from distal femur and the tibia subluxated anteriorly. The external tibial alignment jig was then placed on the anterior face of the tibia and adjusted 14 mm medially. Proximal tibial cut was made remove about 1 to 2 mm of bone from the medial side. The tibia was sized to a size 63. Attention drawn the femur. The distal femur Zaro the sharp drop with intramedullary canal was suction. A left 5 degree valgus cutting guide was placed. The distal femoral cutting block was pinned in place. Distal femoral cut was made take an additional 3 mm of bone off distal femur. The femur was then sized to a size 60. The AP cutting block was pinned parallel to the epicondylar axis which was 5 degrees of external rotation. The anterior cut, anterior chamfer, posterior cut, posterior chamfer cuts were made. The box cutting guide was placed in the just slight lateral box cut was made. The knee was flexed. The remnants of the medial and lateral menisci were excised. The osteophyte taken off the posterior aspect the femur. A trial femoral component was placed. The tibial tray was pinned Inez external rotation and the drill and stem punch were used to create defect in proximal tibia for the tibial tray. Knee was then trialed and the 12 mm insert fit most appropriately. Attention drawn the patella. The patella was cleaned of all soft tissue. Patella thickness measured about 18 mm in thickness was cut down to 13. Was sized to a size 28 patella. The lug holes were drilled for the 28 patella. The lateral osteophytes removed. Patella button was placed. Knee was taken through range of motion and the patella tracked nicely with no thumbs test. Attention drawn to place the permanent components. All trial components were removed. Bone plug was placed into the distal femur limit blood loss. A double batch Palacos G cement was mixed. Biomet Vanguard size 60 left posterior stabilized femoral component, size 63 tibial tray, a 12 mm post stabilized polyethylene insert, and 28 x 8 all poly patella then cemented in place. Knee was brought out into full extension till cement hardened. Final cement check was then performed. The pericapsular tissues were injected with total of 100 cc of Ortho joint mix. The patient did receive 1 g tranexamic acid. The tourniquet was then let down for final tourniquet time of 49 minutes. Hemostasis assured use electrocautery. Extensor Meclomen closed with combination 1 PDS suture #1 Vicryl suture in a [id number] fashion. Extensor Meclomen checked found to be intact and subcutaneous tissue was then closed with 2 Dexon suture in a buried interrupted fashion skin was closed skin sherri. Leg was then cleaned and dried and a sterile dressing with Xeroform, 4 fours, sterile cast padding, Woody bandage were applied. Patient then transferred to the recovery room in stable condition. Patient tolerated the procedure well and there were no complications. Mukesh Albert, my physician speech correction assistant, was present for the entire procedure. His assistance was essential and required for appropriate patient positioning, prepping and draping, surgical exposure, performing the technical details of the operation, placement the implants, closure of the wound, and placement of the sterile bandage. I attest to the content of the Intraoperative Record and any orders documented therein. Any exceptions are noted below.
--- NOTE | 2024-04-21 14:44 | Anesthesiology Progress Note ---
Date of Service April 21, 2024 Anesthesia Post Procedure Vital Signs Vital Signs: Temp Pulse Pulse Pulse Resp BP BP 04/21/24 14:40 36.4 C L 63 16 141/69 H 04/21/24 14:30 62 18 118/85 04/21/24 14:20 64 16 120/65 04/21/24 14:13 36.3 C L 76 13 117/65 04/21/24 12:23 64 16 142/82 H 04/21/24 10:32 37 C 66 18 BP Pulse Ox O2 Del Method O2 Flow Rate 04/21/24 14:40 95 Room Air 04/21/24 14:30 99 Oxymask 4 04/21/24 14:20 98 Oxymask 6 04/21/24 14:13 97 Oxymask 6 04/21/24 12:23 100 Oxymask 6 04/21/24 10:32 169/87 H 97 Room Air Pain Intensity Left Knee: Pain Intensity: 2 Transfer of Care Handoff Completed per policy Notes Mental Status: alert / awake / arousable Patient Amnestic to Procedure: Yes Nausea / Vomiting: adequately controlled Pain: adequately controlled Airway Patency, RR, SpO2: stable & adequate BP & HR: stable & adequate Hydration State: stable & adequate Anesthetic Complications: no major complications apparent
--- NOTE | 2024-04-21 15:13 | XRay Report ---
XR knee LT 1 or 2V routine CLINICAL HISTORY: Surgical Post Op TECHNIQUE: 2 views of the left knee were obtained. Comparison: Comparison is made to knee radiograph 12/25/2017 FINDINGS: Patient is status post total knee arthroplasty with expected postsurgical changes including soft tiss ue swelling and subcutaneous emphysema. No periarticular lucency or hardware fracture is seen. IMPRESSION: Expected postoperative appearance status post placement of total knee arthroplasty. ACT 112: Negative or not required by law. Electronically signed by: Bismark Taylor M.D. 04/21/2024 3:12 PM
[2024-04-21] MEDS: ALLERGY Noted to ORDERED Medication SCH (15:40)
[2024-04-21] MEDS ORDERED: oxyCODONE HCL IR 5 MG TAB (IMMEDIATE RELEASE) PO PRN (15:55)
[2024-04-21] MEDS ORDERED: MAGNESIUM HYDROXIDE SUSP 30 ML UDC PO PRN (15:55)
[2024-04-21] MEDS ORDERED: diphenhydrAMINE Capsule 25 MG CAP PO PRN (15:55)
[2024-04-21] MEDS ORDERED: HYDROmorphone INJ 0.5 MG/0.5 ML SYR IV PRN (15:55)
[2024-04-21] MEDS ORDERED: ALUMINUM/MAGNESIUM SUSP 30 ML UDC PO PRN (15:55)
[2024-04-21] MEDS ORDERED: METOCLOPRAMIDE HCL INJ 5 MG/ML 2 ML VIAL IV PRN (15:55)
[2024-04-21] MEDS ORDERED: NALOXONE HCL 0.4 MG/1 ML VIAL/CARP IV PRN (15:55)
[2024-04-21] MEDS ORDERED: bisacodyL 10 MG SUPP PR PRN (15:55)
[2024-04-21] MEDS: SODIUM CHLORIDE 0.9% 1,000 ML IV SCH (16:00)
[2024-04-21] MEDS: Scopolamine CHECK PATCH PLACEMENT SCH (16:43)
[2024-04-21] MEDS: ASCORBIC ACID 500 MG TAB PO SCH (16:47)
[2024-04-21] MEDS: KETOROLAC 30 MG/ML VIAL IV SCH (16:47)
[2024-04-21] MEDS: ceFAZolin 1000MG 1,000 MG/7.5 ML SYR IV SCH (21:21)
[2024-04-21] MEDS: TRANEXAMIC ACID / 0.7% NACL 1,000 MG/100 ML BAG IV SCH (21:21)
[2024-04-21] MEDS: SENNA 8.6 MG TAB PO SCH ×2 (21:21→21:24)
[2024-04-21] MEDS: ASPIRIN 81 MG ECTAB PO SCH (21:22)
[2024-04-21] MEDS: LOSARTAN POTASSIUM 50 MG TAB PO SCH (21:22)
[2024-04-21] MEDS: dilTIAZem HCL 180 MG CAPCR PO SCH (21:22)
[2024-04-21] MEDS: DOCUSATE SODIUM 100 MG CAP PO SCH (21:23)
[2024-04-22 06:34] LABS: Hemoglobin 12.7 g/dl (12.0-16.0); Mean Corpuscular Hemoglobin 31.2 pg (25.0-34.0); Mean Corpuscular Hgb Conc 35.3 g/dL (32.0-36.0); Mean Corpuscular Volume 88.5 fL (80.0-100.0); Mean Platelet Volume 9.1 fL (9.4-12.4); Platelet Count 278 K/uL (130-400); RDW Coefficient of Variation 11.9 % (11.5-14.5); RDW Standard Deviation 38.7 fL (36.4-46.3); Red Blood Count 4.07 M/uL (4.20-5.40); White Blood Count 16.64 K/ul (4.8-10.8)
[2024-04-22 06:48] LABS: BUN Creatinine Ratio 19.4 (10-20); Calcium 8.9 mg/dl (8.6-10.3); Creatinine Clr Calc Pharmacy 93.3 ml/min; Est GFR (African American) 111.2 ml/min; Potassium 3.5 mmol/L (3.5-5.1)
--- NOTE | 2024-04-22 07:14 | Surgery Progress Note ---
Date of Service April 22, 2024 Assessment & Plan (1) Status post left knee replacement: Plan: 63-year-old female postop day 1 from left knee replacement. She is doing pretty well. Pains controlled. She is neurologically intact. Plan: 1. PT/OT. Weight-bear as tolerated left total knee protocol. 2. DVT prophylaxis including thigh-high teds, SCDs, aspirin twice daily. 3. Pain control done okay with current pain regimen. 4. Disposition plan is to discharge to home. She is going to outpatient therapy. Admission and Anticipated Discharge Date Admission Date: April 21, 2024 Subjective 63-year-old female postop day 1 from a left knee replacement. She is doing pretty well this morning. Pains controlled. Had a reasonable night. No chest pain or shortness of breath. Not feeling dizzy or lightheaded. Physical Exam Physical Exam: Physical examination was a pleasant middle-age female. She is lying in bed looks pretty comfortable this morning. Examination left leg reveals the dressing be clean dry and intact. There is no drainage. She can dorsiflex and plantarflex her foot appropriately. She is neurologically intact. Respiratory: normal respiratory effort, lungs clear to auscultation Cardiovascular: RRR, no murmur, no edema Gastrointestinal (Abdomen): normal bowel sounds, soft, nontender, no hepatosplenomegaly Results & Data Vital Signs (Past 12 Hours) Vital Signs Temp Pulse Resp BP Pulse Ox O2 Del Method 04/22/24 03:35 36.5 C 63 16 134/71 96 Room Air 04/21/24 23:38 36.6 C 71 16 126/71 95 Room Air 04/21/24 22:00 Room Air 04/21/24 19:25 36.6 C 84 18 173/83 H 95 Room Air Laboratory Results Hemoglobin is 12.7. Hematocrit 36.0. Electrolytes are stable. PG Care Time/CCT Total # of Minutes Spent Total Time Spent with Patient: Total time spent is greater than 50% in coordination of care (as documented) at patient's floor/unit and/or counseling patient: Coding Level of Care Code 20508 Post Operative Follow-Up Diagnoses Status post left knee replacement Z96.652
[2024-04-22] MEDS: MULTIVITAMIN TAB PO SCH (08:49)
[2024-04-22] MEDS ORDERED: NON-FORMULARY MEDICATION (Multivit-Iron-Fa-Calcium-Mins [Women's One Daily] 18 mg iron-400 PO SCH (09:00)
--- NOTE | 2024-04-22 09:12 | Discharge Summary ---
Date of Service April 22, 2024 Admission HPI Per Admitting Provider CC: 1. Persistent left knee pain and discomfort. 2. Followup of right knee replacement, now 6 years out. The patient is [id number] female who returns for followup of her knees. She continues to be bothered by left knee pain and discomfort. She had her right knee replacement 6 years ago and done well from this. She was pretty painful initially, but very happy with it now. She continues to be limited by left knee pain, discomfort, and stiffness. She has become less active due to the pain in her knee. It is a global pain, but a little bit more medial. It feels stiff all the time. She is ready to have this fixed. A/P: A 63-year-old female, 6 years out from right knee replacement with advanced left knee DJD. She is ready to have her knee fixed. She was pretty painful for the first couple of weeks after the right knee. She is also scheduled for some type of laser cataract surgery about a week after her knee surgery. We will proceed with total knee replacement. The risks and benefits of this procedure were explained and she understands. As far as the laser surgery on her eye, I am fine with her doing that a week afterwards. She can check with the eye doctors to see whether they are willing to do that. She will stay in the hospital overnight. She struggled with pain last time and we will do the best we can to manage this. Not a good candidate for same day discharge. I will see her back 2 weeks postop. Admission Exam Per Admitting Provider Gen: Examination shows a pleasant, healthy, middle-aged female. She looks to be in good health. HEENT: Benign. Neck: Supple. No lymphadenopathy. Lungs: Clear to auscultation. Heart: Regular rate and rhythm. Abdomen: Soft, nontender, and nondistended. Extremities: Grossly neurovascularly intact except as follows. Examination of both knees reveals the patient ambulates independently. She does limp and walks with a little bit of a stiffed knee gait on the left side. Examination of the left knee reveals varus alignment to her knee. She has about a 5-10 degree flexion contracture and bends to about 120. No particular pain with hip motion. Examination of the right knee reveals a well-healed incision. She has got anatomic alignment to the knee. No swelling. Range of motion is 0 to 125. Good straight leg raise. X-rays, 4 views of the left knee from today were reviewed. These show advanced left knee DJD. She has got complete loss of the medial joint space. She has a little bit of tibiofemoral subluxation. Osteophytes primarily medially. She does have some osteophytes laterally. Her right knee looks well-aligned without problems. Principal Diagnosis Same as "Discharge Diagnosis" noted below under Discharge Instructions. Discharge Exam Physical examination was a pleasant middle-age female. She is lying in bed looks pretty comfortable this morning. Examination left leg reveals the dressing be clean dry and intact. There is no drainage. She can dorsiflex and plantarflex her foot appropriately. She is neurologically intact. GENERAL: AA&Ox3, NAD. Pleasant, affect is calm. Sitting in bed and appears comfortable. RESPIRATORY: Normal respiratory effort with no signs of distress. CHEST/AXILLA: Chest movement symmetrical. No deformities noted. CARDIOVASCULAR: No edema noted. SKIN: [place], warm and dry. MS/EXTREMITY: Knee dressing & KIMANI wrap c/d/i. BREA hose donned to contralateral LE. + ankle dorsi/plantarflexion. NVI distally. Calf soft/NT. PT/DP intact. +SLR. Discharge Data Allergies Allergy/AdvReac Type Severity Reaction Status Date / Time cat dander Allergy Unknown ITCHY Verified 04/21/24 10:23 EYES, STUFFY ,CONGESTION Penicillins Allergy Unknown UNKNOWN Verified 04/21/24 10:23 A CHILD Procedures Performed Operation Date: 04/21/24 12:00 Actual Procedures p Left Total Knee Arthroplasty(Left) - Saad Aiken MD Ordered Studies 04/21/24 05:00 US - OR guided needle placemen Routine Knee X-Ray 04/21/24 14:08 XR knee LT 1 or 2V routine CLINICAL HISTORY: Surgical Post Op TECHNIQUE: 2 views of the left knee were obtained. Comparison: Comparison is made to knee radiograph 12/25/2017 FINDINGS: Patient is status post total knee arthroplasty with expected postsurgical changes including soft tissue swelling and subcutaneous emphysema. No periarticular lucency or hardware fracture is seen. IMPRESSION: Expected postoperative appearance status post placement of total knee arthroplasty. ACT 112: Negative or not required by law. Electronically signed by: Bismark Taylor M.D. 04/21/2024 3:12 PM Hospital Course (1) Status post left knee replacement: On April 21, 2024 Racquel arrived at [facility] operating room and underwent a left total knee replacement without complications. Patient had an adductor canal block and spinal anesthetic for the procedure. Postoperatively, patient was transferred to the general orthopedic floor in stable condition and eventually started onto aspirin 81 mg twice daily for DVT prophylaxis as appropriate. Postoperative x-rays were taken, which were well- appearing with no periprosthetic lucency. Patient's hospital course was uneventful. On postoperative day #1, patient's vital signs were stable and pain was well-controlled. Patient was able to participate well with physical therapy, safely performing the necessary ambulation and range of motion exercises and properly demonstrating ADL tasks. Patient was then discharged home in stable condition, with self-care and outpatient PT services to begin. Patient will follow-up with orthopedics in 2 to 3 weeks for postoperative care. Plan 63-year-old female postop day 1 from left knee replacement. She is doing pretty well. Pains controlled. She is neurologically intact. Plan: 1. PT/OT. Weight-bear as tolerated left total knee protocol. 2. DVT prophylaxis including thigh-high teds, SCDs, aspirin twice daily. 3. Pain control done okay with current pain regimen. 4. Disposition plan is to discharge to home. She is going to outpatient therapy. Total Time Total Time Spent Total Time Spent (In Minutes): Total Time Spent with Patient: Total time spent is greater than 50% in coordination of care (as documented) at patient's floor/unit and/or counseling patient: Discharge Plan Discharge Items Patient Disposition: Home - Self-Care Reason For Visit: Degenerative Joint Disease Left Knee Discharge Diagnosis: Left Knee Replacement Activity: Per Instructions section Weightbearing: Full weightbearing Non-emergency contact: Surgeon Call non-emergency contact if: you have any medication questions Follow-up/Referrals: Zonia Low MD [Primary Care Provider] - Diet: Regular Addtl Attending Provider Instructions: ACTIVITY RECOMMENDATIONS: Physical Therapy: * You will go to physical therapy three times each week for four to six weeks after your surgery in order to regain your knee range of motion and to retrain your knee to work properly. * It is just as important to make sure you are getting your knee perfectly straight as it is to regain your knee bend. * Taking a pain pill an hour before therapy can help you have a more productive and comfortable therapy session. Home Exercise: * You were shown a series of exercises (heel props, heel slides, etc.) in the hospital. Do these exercises three to four times each day including the exercises you were shown in physical therapy. Walking: * Get up and walk several times each day. For the first four weeks, try not to stand or walk for more than one hour at a time. If you do stand or walk for more than one hour, you will not hurt anything, but your knee and leg will likely swell. * As you feel comfortable, you may change from the walker or crutches to a cane and then to independent walking. MEDICATIONS: New Medicine: * You will likely be taking one or more of these medications: 1. Oxycodone - A quick and shorter-acting pain medication. Take one to two tablets every six hours to lessen your pain. 2. Aspirin - Thins your blood to lessen the chance of forming a blood clot. * The most common side effects of pain medicine and iron are nausea and constipation. If nausea or constipation is too much of a problem or if you have any questions about your new medicines or doses, call [facility] at [phone] 1. We will try to help you manage these issues. "VERY IMPORTANT TO READ AND REVIEW" Pain: * The immediate post-operative period after knee replacement surgery is often quite painful. * You are given a prescription for pain medicine. You should take it, as directed, when you need it, especially before physical therapy and before going to bed. Pain that interferes with sleep is very common and can last several months. * You will likely need pain medicine for the first four to six weeks. It will not stop all of the pain. The pain will lessen and as you feel better, you may change to milder pain medicine such as Tylenol. * The most common side effects of pain medicine are nausea and constipation, so don't take more than you need. SPECIAL CARE INSTRUCTIONS: TEDs/Elastic Stockings: * The white elastic stockings help limit swelling and prevent blood clots from forming in your legs. The more you wear them, the more they work. * Wear them for six weeks after knee replacement surgery and four weeks after partial knee replacement. Incision Site Care: * Remove dressing postoperative day 2 and then shower. Keep direct shower pressure off the incision site. * After showering, cover sherri with dry gauze and change daily or more frequently if the dressing is getting saturated with drainage. * Use the BREA stockings to hold dressing in place. DO NOT apply tape on the skin. * May completely stop using bandage if wound is dry and no drainage * Sherri are removed between 2 and 3 weeks post-op. If your follow-up appointment is made before 2 weeks, please have your appointment re- scheduled. It is too early to remove the sherri. Prevention of Infection: * Take antibiotics one hour before any dental cleaning, dental work, urological procedure, gastrointestinal procedure or any invasive surgery in order to prevent your new joint from getting infected. * You may get the antibiotics from the doctor performing the procedure or you may call our office at [phone] before and we will call in a prescription to the pharmacy of your choice. Things to Watch For: * Drainage from the incision site that occurs more than one week after your surgery. * Severely increased knee/leg pain or swelling. * Increased redness at the incision site. * Fever above 102 degrees Fahrenheit. * Unusual chest pain or shortness of breath. * Unusual pain or burning with urination. Call [facility] at [phone] with any of the above problems or if you have any questions about your medicines or recovery. FOLLOW UP VISIT: Make an appointment to see your doctor for approximately two weeks after surgery for a progress check and staple removal by calling the office at [phone]. Pending Studies at Discharge: No Stand-Alone Forms: My [facility] [employer], Smoking Cessation Medications and DC Order Prescriptions: Continued oxycodone 5 mg tablet 5 - 10 mg PO Q6 PRN (Reason: pain) Qty: 40 0RF Rx Instructions: Take as needed for pain ondansetron 4 mg tablet,disintegrating 4 mg PO Q8 PRN (Reason: nausea) Qty: 20 1RF Rx Instructions: Take as needed for nausea ketorolac 10 mg tablet 10 mg PO Q6 5 Days Qty: 20 0RF Rx Instructions: Take 4 times per day with food for 5 days to lessen pain and swelling. sennosides [Senokot] 8.6 mg tablet 8.6 mg PO BID 14 Days Qty: 28 0RF Rx Instructions: Take two times a day to prevent/treat constipation acetaminophen [Tylenol Extra Strength] 500 mg tablet 1,000 mg PO TID 30 Days Qty: 180 0RF Rx Instructions: Take 3 times per day to lessen pain. aspirin [Ashley Low Dose Aspirin] 81 mg tablet,delayed release (DR/EC) 81 mg PO BID 45 Days Qty: 90 0RF Rx Instructions: Take to prevent blood clots. cefadroxil 500 mg capsule 500 mg PO BID 7 Days Qty: 14 0RF Rx Instructions: Take 1 cap twice a day to prevent infection (DME) 3-in-1 Commode Misc See Rx Instructions .MEDSUPPLY Qty: 1 0RF Rx Instructions: As directed losartan 100 mg Tablet 100 mg PO QPM diltiazem HCl 180 mg Tablet Extended Release 24 Hr 180 mg PO QPM Women's One Daily 18 mg iron-400 mcg-500 mg Ca Tablet 1 tab PO QAM Discharge Orders: Discharge Order (Routine); Ordered 04/22/24 Ordered By: Saad Aiken Admission Data Admit Date/Time: 04/21/24 14:08 Attending Provider: Saad Aiken Admit Provider: Saad Aiken Primary Care Provider: Zonia Low V.
[2024-04-22] MEDS: dexAMETHasone 10 MG in SYRINGE 0 ML IV SCH (10:08)
== END 2024-04-22 12:59 | disposition home or self-care (01) ==
LOC: ASU 09:53 → PACUINP 09:53 → 3E 15:54